=== PATIENT | male | born 1990 | race Caucasian/White ===

== ENCOUNTER 2016-04-13 22:33 | Emergency (ER) | payer OTHER ==
--- NOTE | ~2016-04-13 | CR142 ---
[facility] A Service of [facility] & [facility] [place] RADIOLOGY TEXT RESULTS PATIENT: DIOMEDES PRESTON LOCATION: [facility] : [birth year] UNIT #: [id number] AGE: [address]: Kiko Britt MD SEX: M ORDER DR: [id number] [facility] [address] [place], [place] [address] [id number] E MR#: [id number] Acc #: [id number] NAME: DIOMEDES PRESTON. : 1990 SEX: M STUDY DATE/TIME: 04/13/2016 21:40 UNIT: [facility] ROOM: STUDY DESCRIPTION: CR Hand Min 3 Views Rt Attending Physician: Kiko Britt M.D. Ordering Physician: Kiko Britt M.D. Primary Care Physician: Primary Care Physician No MEDICAL IMAGING REPORT This report is preliminary unless electronic signature is present EXAM 3 views right hand performed on 04/13/2016. HISTORY 26-year-old male with hand pain status post trauma falling down some stairs today. FINDINGS There is some soft tissue swelling present, but no fracture or dislocation is appreciated. Joint spaces are intact. Possibility of some glass fragments is noted in the phalanges, including the third digit proximally, fourth digit distally, and possibly adjacent to the fifth metacarpal. Clinical correlation recommended. IMPRESSION 1. No acute fracture or dislocation. 2. Question of some glass fragments as described above within the soft tissues. Clinical correlation recommended. Dictated by... Patrice Brown M.D. THIS IS AN ELECTRONICALLY VERIFIED REPORT Patrice Brown M.D. at 04/14/2016 7:05 PM RP/thais TD: 04/14/2016 01:38 JOB #: [id number] MEDICAL IMAGING REPORT COPY
[~2016-04-13 22:33] MED LIST: DICLOFENAC PO; PEN-VEE K PO
== END 2016-04-13 22:50 | disposition home or self-care (01) ==
LOC: CED 22:33
DX: S61.411A Laceration without foreign body of right hand, initial encounter (principal); F17.200 Nicotine dependence, unspecified, uncomplicated; Z23 Encounter for immunization; W10.9XXA Fall (on) (from) unspecified stairs and steps, initial encounter; Y92.009 Unspecified place in unspecified non-institutional (private) residence as the place of occurrence of the external cause
CPT/HCPCS: 12001; 73130; 90471; 90715; 99283